=== PATIENT | female | born 1970 | race Caucasian/White ===

== ENCOUNTER 2019-12-23 15:12 | Emergency (ER) | payer OTHER, SELFPAY ==
--- NOTE | ~2019-12-23 | XR_ITS ---
EXAMINATION: XR finger 2nd LT min 2V DATE: 12/23/2019 15:52 INDICATION: Left hand second digit injury. TECHNIQUE: 3 views of left hand second digit were obtained. COMPARISON: None. FINDINGS: Bone alignment is normal. There is a punctate calcification at ulnar aspect of second dista l interphalangeal joint. 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 There i s a laceration of the distal digit. IMPRESSION: 1. Punctate calcification at ulnar aspect of second distal interphalangeal joint, which may be a chip avulsion fracture. Reviewed, dictated and finalized at location [facility]. [facility] IMPRESSION: 1. Punctate calcification at ulnar aspect of second distal interphalangeal join t, which may be a chip avulsion fracture.
--- NOTE | 2019-12-23 15:49 | ED.WOUNDLAC ---
HPI - Wound/Laceration General Chief Complaint: Extremity Injury, Upper Stated Complaint: L HAND INJURY Time Seen by Provider: 12/23/19 15:27 Source: patient Mode of arrival: ambulatory Limitations: no limitations History of Present Illness HPI narrative: This is a 49 year old female that presents to the ER for laceration to left 2nd finger sustained just prior to arrival. Reports she accidentally shut her finger in the door. Reports a laceration to the tip of the left 2nd finger. Reports some bleeding to the area. Reports she is up to date on tetanus. Denies decreased range of motion or numbness. Related Data Allergies Allergy/AdvReac Type Severity Reaction Status Date / Time codeine Allergy Intermediate itching Verified 10/20/16 12:55 and rash Medrol dose pack Allergy Mild feet Uncoded 10/20/16 12:55 swelling Review of Systems Review of Systems: Narrative: CONSTITUTIONAL: Denies fever SKIN: Reports laceration MUSCULOSKELETAL: Reports joint pain, and myalgia. NEUROLOGIC: Denies numbness All systems reviewed & are unremarkable except as noted in HPI and below PMFSH Past Medical History Medical History (Updated 12/23/19 @ 17:10 by Caren Han PA-C) History of obesity Surgical History Surgical History (Updated 12/23/19 @ 17:06 by Caren Han PA-C) History of cholecystectomy Social History Social History (Updated 12/23/19 @ 17:06 by Caren Han PA-C) Smoking status: Current every day smoker Exam Narrative: Exam Narrative: GENERAL: Well-appearing, well-nourished, and in no acute distress. HEAD: Normocephalic, atraumatic. EYES: EOMI. EXTREMITIES: Normal range of motion. Mild swelling to the left 2nd distal phalanx. 0.5cm linear laceration into subcutaneous tissue to ulnar side of left nail, nail is intact. Normal sensation SKIN: Warm, dry, no rash. NEURO: No focal deficits. Alert and oriented x3. PSYCH: Normal mood and affect MDM - Wound/Laceration MDM Narrative Medical decision making narrative: Patient presents the emergency department for left second finger injury today. Patient with laceration to the distal phalanx. Laceration was irrigated and closed with sutures. Patient is up-to-date on tetanus. Left second finger x-ray shows possible chip avulsion fracture. Patient will be placed in a splint. Patient will be given plastics for follow-up. She was given warnings to return to the ER Imaging Data Radiologist's impression: ITS Impressions Finger X-Ray 12/23/19 15:58 IMPRESSION: 1. Punctate calcification at ulnar aspect of second distal interphalangeal joint, which may be a chip avulsion fracture. Critical Care Time Critical Care Time Critical Care Time: No Discharge Plan Discharge Clinical Impression: Laceration Closed nondisplaced fracture of phalanx of left index finger Qualifiers: Encounter type: initial encounter Phalanx: distal Qualified Code(s): S62.661A - Nondisplaced fracture of distal phalanx of left index finger, initial encounter for closed fracture Patient Disposition: Home, Self-Care Condition: Stable Instructions: Care For Your Stitches (ED), Laceration (ED), Finger Fracture (ED) Additional Instructions: Return to the emergency department if you experience fever, redness or swelling of your wound, abnormal drainage from your wound, or any other symptoms that are concerning to you. Apply antibiotic ointment daily. Do not soak the wound. Clean with mild soap and water daily. Keep your splint on. Ice to the area. Elevate. Pain medication as needed Follow-up with plastic surgery for further care and suture removal in 10-14 days. Prescriptions: New hydrocodone-acetaminophen 5-325 mg tablet 1 tablet PO Q8H PRN (Reason: pain) Qty: 7 RF: 0 Follow-up/Referrals: Tom Nolasco MD [Physician] - 2 Weeks Hayden Moreno MD [Physician] - 2 Weeks PHYSICIAN,CASE ASSEMBLER [Primary Care Provider] - Stand Alone Forms: Work/Sc
[2019-12-23 17:30] VITALS: BP 182/85; PULSE 87; RESP 12; TEMP 36.7; O2SAT 96
[2019-12-23 17:34] VITALS: BP 175/85; PULSE 80; O2SAT 100
== END 2019-12-23 17:35 | disposition home or self-care (01) ==
PROVIDERS: Emergency Provider Emergency Medicine
DX: S62.661A Nondisplaced fracture of distal phalanx of left index finger, initial encounter for closed fracture (principal); S61.211A Laceration without foreign body of left index finger without damage to nail, initial encounter; E66.9 Obesity, unspecified; W23.0XXA Caught, crushed, jammed, or pinched between moving objects, initial encounter; F17.200 Nicotine dependence, unspecified, uncomplicated
CPT/HCPCS: 12001; 29130; 73140; 99283; 99284